=== PATIENT | male | born 2000 | race Caucasian/White ===

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

== ENCOUNTER 2022-01-14 10:24 | Inpatient (IN) | payer BC ==
--- NOTE | 2022-01-14 10:58 | XR ---
EXAMINATION TYPE: XR chest 2V DATE OF EXAM: 01/14/2022 COMPARISON: 02/25/2020 INDICATION: Progressively worsening cough TECHNIQUE: Frontal and lateral views of the chest are obtained. FINDINGS: The heart size is normal. The pulmonary vasculature is normal. There is a right suprahilar superior mediastinal mass. Additional workup is recommended.. Trachea ap pears midline. No significant compression is evident. IMPRESSION: 1. Right suprahilar or superior right mediastinal mass. CT chest with contrast is recommended for add itional evaluation.
--- NOTE | 2022-01-14 11:58 | CT ---
EXAMINATION TYPE: CT chest wo con DATE OF EXAM: 01/14/2022 INDICATION: Difficulty breathing. CT DLP: 296.9 mGy.cm Automated Exposure Control for Dose Reduction was Utilized. TECHNIQUE AND CONTRAST: CT scan of the chest without IV contrast administration. COMPARISON: X-ray performed earlier same day FINDINGS: Right superior mediastinal mass measuring 7.2 x 6 x 7.8 cm. It is suboptimally assessed due to the la ck of IV contrast administration. It is inseparable from the SVC and aortic arch anteriorly, compress ing the trachea posteriorly and medially and inseparable from the mediastinal pleura and adjacent rig ht upper lobe laterally. The right main bronchus is slightly displaced posteriorly by the mass. No gross cardiomegaly. Right u pper lobe medial atelectasis, likely due to the mass effect of the lesion. Grossly unremarkable remai nder of the lungs. Patent trachea and main bronchi. No pleural or pericardial effusion. No pathologically enlarged lymph nodes in the chest by this nonen hanced CT scan. 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 Grossly unremarkable upper abdo men. No aggressive bone lesion. IMPRESSION: Right superior mediastinal mass as described above. It is suboptimally assessed by this nonenhanced C T scan in spite of the previous x-ray recommendation for a contrast-enhanced CT chest. It could represent a lymphoma however other neoplastic lesion of vascular, pulmonary or soft tissue o rigin can't be excluded. Recommend further PET scan assessment, thoracic surgery consultation and tis alisha diagnosis.
--- NOTE | 2022-01-14 12:09 | ED ---
URI HPI - General Chief Complaint: Upper Respiratory Infection Stated Complaint: ASHLIE Time Seen by Provider: 01/14/22 11:05 Source: patient, family (mom), RN notes reviewed, old records reviewed Mode of arrival: ambulatory Limitations: no limitations - History of Present Illness Initial Comments: This is a well-appearing 21-year-old male that presents to the emergency room with complaints of 2 days of cough, congestion, runny nose and headaches. He states that he has chest tightness that is worse when he tries to take a deep breath. Patient states he used to vape but quit 2 years ago. Patient denies any medical history and no medications on a daily basis. MD Complaint: cough, rhinorrhea, nasal congestion, other (headache) Severity scale (1-10): 7 Consistency: constant Improves With: nothing Associated Symptoms: headache, rhinorrhea, nasal congestion, cough, chest pain, nausea - Related Data Home Medications Medication Instructions Recorded Confirmed No Known Home Medications 04/15/20 04/15/20 Allergies Allergy/AdvReac Type Severity Reaction Status Date / Time nut - unspecified Allergy Anaphylaxis Verified 01/14/22 10:40 tree nut [Nut] Allergy Anaphylaxis Verified 01/14/22 10:40 Review of Systems ROS Statement: Those systems with pertinent positive or pertinent negative responses have been documented in the HPI. ROS Other: All systems not noted in ROS Statement are negative. Past Medical History Past Medical History: No Reported History Additional Past Medical History / Comment(s): ABDOMINAL PAIN History of Any Multi-Drug Resistant Organisms: None Reported Past Surgical History: No Surgical Hx Reported Past Anesthesia/Blood Transfusion Reactions: No Reported Reaction Additional Past Anesthesia/Blood Transfusion Reaction / Comment(s): FIRST ANESTHETIC Past Psychological History: No Psychological Hx Reported Smoking Status: Never smoker - Past Family History Mother Family Medical History: No Reported History General Exam Limitations: no limitations General appearance: alert, in no apparent distress Head exam: Present: atraumatic Eye exam: Present: normal appearance. Absent: scleral icterus, conjunctival injection ENT exam: Present: normal exam, normal oropharynx, mucous membranes moist Neck exam: Present: normal inspection, full ROM. Absent: tenderness, meningismus, lymphadenopathy Respiratory exam: Present: wheezes Cardiovascular Exam: Present: regular rate, normal rhythm GI/Abdominal exam: Present: soft. Absent: distended, tenderness, rigid Extremities exam: Present: full ROM, normal capillary refill. Absent: tenderness, pedal edema, joint swelling, calf tenderness Back exam: Present: normal inspection, full ROM. Absent: tenderness, CVA tenderness (R), CVA tenderness (L), rash noted Neurological exam: Present: alert, oriented X3 Psychiatric exam: Present: normal affect, normal mood Skin exam: Present: warm, dry, intact, normal color, other (Bruising to bilateral lower extremities yellow-green in color). Absent: cyanosis, diaphoretic, pallor Course Vital Signs 01/14/22 01/14/22 10:35 13:11 Temperature 98.3 F Pulse Rate 99 84 Respiratory 18 20 Rate Blood Pressure 117/92 113/80 O2 Sat by Pulse 91 L 90 L Oximetry Medical Decision Making - Medical Decision Making Patient presents with cold symptoms for 2 days with dyspnea, nausea and nasal congestion. X-ray on room air. He was given a breathing treatment. shows a suprahilar mass, recommending CT. CT shows a right superior mediastinal mass measuring 7 x 6 x 7 cm. This is consistent with lymphoma however neoplastic lesion of vascular pulmonary or soft tissue origin cannot be excluded. Main right bronchus is displaced posteriorly by the mass. The trachea is compressed posteriorly and medially. On exam patient does have inspiratory and expiratory wheezes, oxygen saturation of 90% on room air, no respiratory distress noted. He was given a breathing treatment. Case discussed with Dr. Kc patient will be admitted to the hospital with pulmonary and hematology oncology consults. Case was discussed with Dr. Arvizu regarding patient's age and is willing to see the patient. Patient and mom were notified of the results and they're agreeable to admission. - Lab Data Lab Results 01/14/22 Range/Units 10:45 Coronavirus (PCR) Not Detected (Not Detectd) Disposition Clinical Impression: Pulmonary mass Disposition: ADMITTED IP TO THIS HOSP Referrals: Thai Mckeon DO [Primary Care Provider] - 1-2 days Decision Date: 01/14/22 Decision Time: 12:07
[2022-01-14] MEDS ORDERED: ACETAMINOPHEN TAB 325 MG TAB PO PRN (12:50)
[2022-01-14] MEDS ORDERED: IPRATROPIUM-ALBUTEROL 3 ML NEB INHALATION STA (12:50)
[2022-01-14] MEDS ORDERED: ONDANSETRON 4 MG/2 ML VIAL IVP PRN (12:50)
[2022-01-14] MEDS ORDERED: NALOXONE 0.4 MG/ML 1 ML VIAL IV PRN (12:50)
[2022-01-14] MEDS ORDERED: DEXAMETHASONE SOD PHOSPHATE 10 MG/ML 1 ML VIAL IVP STA (13:23)
[2022-01-14 13:34] LABS: Basophils % (A) 0 %; Eosinophils # (A) 0.6 k/uL (0-0.7); Eosinophils % (A) 5 %; HCT 40.1 % (39.0-53.0); HGB 12.6 gm/dL (13.0-17.5); Hypochromasia Slight; Lymphocytes # (A) 1.3 k/uL (1.0-4.8); Lymphocytes % (A) 11 %; MCH 26.5 pg (25.0-35.0); MCHC 31.4 g/dL (31.0-37.0); MCV 84.6 fL (80.0-100.0); Mean Platelet Volume 7.2; Monocytes # (A) 0.5 k/uL (0-1.0); Monocytes % (A) 4 %; Neutrophils # (A) 8.9 k/uL (1.3-7.7); Neutrophils % (A) 77 %; Platelet Count 443 k/uL (150-450); RBC 4.74 m/uL (4.30-5.90); WBC 11.6 k/uL (4.0-11.0)
[2022-01-14 13:51] LABS: African American GFR (CKD) >90 (>60 ml/min/1.73 sqM); Anion Gap 11 mmol/L; Blood Urea Nitrogen 12 mg/dL (9-20); Calcium 9.4 mg/dL (8.4-10.2); Carbon Dioxide 28 mmol/L (22-30); Chloride 102 mmol/L (98-107); Glucose 96 mg/dL (74-99); Non-African American GFR(CKD) >90 (>60 ml/min/1.73 sqM); Potassium 4.9 mmol/L (3.5-5.1); Sodium 141 mmol/L (137-145)
[2022-01-14] MEDS ORDERED: IOPAMIDOL CONTRAST (ORAL USE) VIAL PO PRN (14:09)
--- NOTE | 2022-01-14 14:13 | P.CNPUL ---
History of Present Illness History of present illness: A 21-year-old boy, coming in to the emergency because of some cough and chest congestion along with a runny nose and headache since been going on for the past 48 hours. The patient was feeling miserable at night and the patient was unable to sleep. He asked his mother to be brought in to the burst department. The patient had a chest x-ray that showed a right upper mediastinal mass and following this the patient had a noncontrast CAT scan of the chest that showed a right superior mediastinal mass measuring 7.2 x 7.8 x 6 cm in size and this was causing some mass effect and compression of the trachea along the right lateral wall. The upper abdominal structures were grossly normal. Lung windows were essentially within normal limits. Based on this, pulmonary consultation was req unancy. The patient is currently afebrile. The patient is hemodynamically stable. Pulse ox is 93% room air oxygen. The patient denied having any fever or chills. He was sweating in the evenings and he has a positive history of night sweats. No itching or pruritus. No neck swelling. No had swelling. No arm swelling. No puffiness of his face. The white cell count is at 11.6 and the liver 4.6 and a platelet count of 443 and the patient has 11% lymphocytes and the patient has normal electrolytes.: COVID 19 testing was negative. No previous chest x-rays are available for comparison. No difficulties in swallowing. He has Vaped in the past. He is a nonsmoker. No flushing, no hemoptysis, no hoarseness, no lymphadenopathy throughout the body, no wheezing or stridor, no vision changes, eye droop or any facial weakness Review of Systems Constitutional: Reports night sweats, Reports weight loss Eyes: denies as per HPI, denies blurred vision, denies bulging eye, denies decreased vision, denies diplopia, denies discharge, denies dry eye, denies irritation, denies itching, denies pain, denies photophobia, denies loss of peripheral vision, denies loss of vision, denies tunnel vision/blind spots Ears: deny: decreased hearing, ear discharge, earache, tinnitus Ears, nose, mouth and throat: Reports as per HPI, Reports nasal congestion Breasts: absent: as per HPI, gynecomastia Cardiovascular: Reports as per HPI Respiratory: Reports cough Gastrointestinal: Reports as per HPI Genitourinary: Reports as per HPI Musculoskeletal: Reports as per HPI Musculoskeletal: absent: ankle pain, ankle stiffness, ankle swelling Integumentary: Reports as per HPI Neurological: Reports as per HPI Psychiatric: Reports as per HPI Endocrine: Reports as per HPI Hematologic/Lymphatic: Reports as per HPI Allergic/Immunologic: Reports as per HPI Past Medical History Past Medical History: No Reported History Additional Past Medical History / Comment(s): ABDOMINAL PAIN History of Any Multi-Drug Resistant Organisms: None Reported Past Surgical History: No Surgical Hx Reported Past Anesthesia/Blood Transfusion Reactions: No Reported Reaction Additional Past Anesthesia/Blood Transfusion Reaction / Comment(s): FIRST ANESTHETIC Past Psychological History: No Psychological Hx Reported Smoking Status: Never smoker - Past Family History Mother Family Medical History: No Reported History Medications and Allergies Home Medications Medication Instructions Recorded Confirmed Type No Known Home Medications 04/15/20 01/14/22 History Allergies Allergy/AdvReac Type Severity Reaction Status Date / Time nut - unspecified Allergy Anaphylaxis Verified 01/14/22 13:24 peanut Allergy Anaphylaxis Verified 01/14/22 13:24 tree nut [Nut] Allergy Anaphylaxis Verified 01/14/22 13:24 Physical Exam Vitals: Vital Signs Temp Pulse Resp BP Pulse Ox 01/14/22 13:35 70 22 113/80 96 01/14/22 13:31 70 01/14/22 13:11 84 20 113/80 90 L 01/14/22 10:35 98.3 F 99 18 117/92 91 L Intake and Output 01/13/22 01/14/22 01/14/22 22:59 06:59 14:59 Other: Weight 78.925 kg The patient appeared well nourished and normally developed. Vital signs as documented. The patient's breathing is nonlabored and the patient is resting comfortably in bed. He is currently on room air oxygen. Head exam is unremarkable. No scleral icterus or corneal arcus noted. Neck is without jugular venous distension, thyromegaly, or carotid bruits. Carotid upstrokes are brisk bilaterally. Lungs are clear to auscultation and percussion. Cardiac exam reveals the PMI to be normally sized and situated. Rhythm is regu lar. First and second heart sounds normal. No murmurs, rubs or gallops. Abdominal exam reveals normal bowel sounds, no masses, no organomegaly and no aortic enlargement. Extremities are nonedematous and both femoral and pedal pulses are normal. Examination of the skin revealed no evidence of significant rashes, suspicious appearing nevi or other concerning lesions.Neurologically, the patient is awake and alert and the patient does not have any focal neurological deficit. Cranial nerves are essentially intact. Results - Laboratory Findings CBC and BMP: 01/14/22 12:54 01/14/22 12:54 Abnormal lab findings: Abnormal Labs 01/14/22 12:54 WBC 11.6 H Hgb 12.6 L Neutrophils # 8.9 H - Diagnostic Findings Chest x-ray: image reviewed CT scan - chest: image reviewed Assessment and Plan Plan: Mediastinal mass involving the right superior/middle mediastinum measuring 7.2 x 7.8 x 6 cm in size and causing some limited mass effect on the right lateral wall of the trachea. Note that the CAT scan was a noncontrast image and this is a suboptimal study. This could be potentially a lymphoma being the Hodgkin's versus non-Hodgkin's. Other pulmonary structures such as bronchogenic cyst is within the differential diagnosis. Vascular structures cannot be completely excluded as the patient had a noncontrast CAT scan. Other possibilities include esophageal abnormalities, tumors such as germ cell or thymus or thyroid related tumors. Acute hypoxic respiratory failure currently on a pulse ox of 90-94% on room air Constitutional symptoms including night sweats and some weight loss Plan Discussed the findings with the family, the mother and the patient's. Will need a contrast enhanced CAT scan of the chest. Based on underlying hypoxemia, I will do a CT of the chest to rule out pulmonary embolism and better evaluate the superior mediastinal structure. Rule out the possibility of pulmonary embolism. Rule out possibility of vascular structures versus solid/soft tissue tumors. Will need a CAT scan of the abdomen and pelvis with by mouth contrast Check thyroid function test Check sedimentation rate I should be able to biopsy this needs to structures through an EBUS. This was explained to the family and the family was agreeable. We reviewed the images. We'll discuss this with hematology oncology. We'll tentatively schedule this patient for bronchoscopy with an EBUS in a.m.
[2022-01-14 14:42] LABS: C Reactive Protein 7.2 mg/dL (<1.0); LDH 1290 U/L (313-618)
--- NOTE | 2022-01-14 20:39 | P.CONS ---
History of Present Illness - Reason for Consult Consult date: 01/14/22 large rt hilar mass Requesting physician: Nash Baig - Chief Complaint shortness of breath, cough - History of Present Illness Mr Tee is a very pleasant 21-year-old male who is presenting to the emergency department with sudden onset shortness of breath. Over the last 2-3 days he wasn't feeling well- cough, congestion-but this progressed to include chest ti ghtness, worse with inspiration, and SOB. It is visible that he is having mild difficulty in breathing at rest. Patient denies any recent voice changes, difficulty swallowing, painful swallowing. He is noting a little bit of swelling in the neck but denies any other swelling, lymphadenopathy, fevers, unintentional weight loss. He is positive for recent onset low back pain, no notable injury. His mother confirms no history of undescended testicle. Family history includes a grandfather with pancreatic cancer. CT of the chest showing a 7.2 x 6 x 7.8 cm right hilar mass is displacing the right bronchus. Patient has been seen by Pulmonary. There are plans for biopsy tomorrow. Review of Systems 14 point review of systems is negative except as stated in HPI Past Medical History Past Medical History: No Reported History Additional Past Medical History / Comment(s): ABDOMINAL PAIN History of Any Multi-Drug Resistant Organisms: None Reported Past Surgical History: No Surgical Hx Reported Past Anesthesia/Blood Transfusion Reactions: No Reported Reaction Additional Past Anesthesia/Blood Transfusion Reaction / Comm: FIRST ANESTHETIC Past Psychological History: No Psychological Hx Reported Smoking Status: Never smoker - Past Family History Mother Family Medical History: No Reported History Medications and Allergies Home Medications Medication Instructions Recorded Confirmed Type No Known Home Medications 04/15/20 01/14/22 History Allergies Allergy/AdvReac Type Severity Reaction Status Date / Time nut - unspecified Allergy Anaphylaxis Verified 01/14/22 13:24 peanut Allergy Anaphylaxis Verified 01/14/22 13:24 tree nut [Nut] Allergy Anaphylaxis Verified 01/14/22 13:24 Physical Exam Vitals: Vital Signs Temp Pulse Resp BP Pulse Ox 01/14/22 17:43 67 18 114/79 93 L 01/14/22 13:35 70 22 113/80 96 01/14/22 13:31 70 01/14/22 13:11 84 20 113/80 90 L 01/14/22 10:35 98.3 F 99 18 117/92 91 L Intake and Output 01/14/22 01/14/22 01/14/22 06:59 14:59 22:59 Other: Weight 78.925 kg - Constitutional General appearance: average body habitus, cooperative, no acute distress - EENT Eyes: anicteric sclerae, EOMI ENT: hearing grossly normal, normal oropharynx - Neck Neck: no lymphadenopathy - Respiratory Respiratory: right: diminished, negative: wheezing - Cardiovascular Rhythm: regular Heart sounds: normal: S1, S2 Abnormal Heart Sounds: no systolic murmur, no diastolic murmur, no rub, no S3 Gallop, no S4 Gallop, no click, no other leg Peripheral Edema: bilateral: None - Gastrointestinal General gastrointestinal: no absent bowel sounds, no decreased bowel sounds, no distended, no hepatomegaly, no hyperactive bowel sounds, normal bowel sounds, no organomegaly, no rigid, no scaphoid, soft, no splenomegaly, no tenderness, no umbilical hernia, no ventral hernia - Genitourinary Dr. Cole performed testicular exam, no unusual findings - Integumentary Integumentary: normal - Neurologic Neurologic: CNII-XII intact - Musculoskeletal Musculoskeletal: strength equal bilaterally - Psychiatric Psychiatric: A&O x's 3, appropriate affect, intact judgment & insight Results CBC & Chem 7: 01/14/22 12:54 01/14/22 12:54 Labs: Abnormal Lab Results - Last 24 Hours (Table) 01/14/22 01/14/22 01/14/22 Range/Units 12:54 12:54 14:20 WBC 11.6 H (4.0-11.0) k/uL Hgb 12.6 L (13.0-17.5) gm/dL Neutrophils # 8.9 H (1.3-7.7) k/uL ESR 87 H (0-15) mm/hr Lactate Dehydrogenase 1290 H (313-618) U/L C-Reactive Protein 7.2 H (<1.0) mg/dL Chest x-ray: report reviewed CT scan - chest: report reviewed Assessment and Plan (1) Pulmonary mass Current Visit: Yes Status: Acute Priority: High Code(s): R91.8 - OTHER NONSPECIFIC ABNORMAL FINDING OF LUNG FIELD SNOMED Code(s): 101137231 Plan: Dr. Cole discussed with the patient and his mother obvious concerning findings in a 21-year-old with a large mass in the chest. Typically benign tumors, i.e. thymomas, I found incidentally and asymptomatic. The symptoms and the size of this mass are concerning. Differentials include germ cell tumor, lymphoid tumor, thyroid or thymus tumors, hopefully less likely a primary. Pending biopsy CT of the abdomen and pelvis and CTA pending. CT of the neck added AFP, beta hCG and HIV testing ordered. Very close follow-up. attests: I have performed H&P, seen and examined patient, developed im pression and plan of care. Discussed with dictator. Agree with documentation dictated as a scribe
--- NOTE | 2022-01-15 07:18 | CT ---
EXAMINATION TYPE: CT chest angio for PE DATE OF EXAM: 01/14/2022 COMPARISON: None HISTORY: weightloss, chest mass CT DLP: 237.6 mGycm Automated exposure control for dose reduction was used. CONTRAST: Performed with IV Contrast, patient injected with 100 mL of Isovue 370. Images obtained from the thoracic inlet through the diaphragm with IV contrast. There are Three-D pos tprocessed images. There is some coarse linear density in the anterior right upper lobe. There is large mass in the medi astinum that measures 6.5 cm in diameter in the right paratracheal region. The thoracic aorta is inta ct. No aneurysm or dissection. No evidence of filling defect in the pulmonary arteries. Heart size is normal. There is no pericardial effusion. The thoracic spine is intact. Sternum is inta ct. No pleural effusion. Upper abdominal soft tissues appear intact. IMPRESSION: Large right-sided soft tissue density mediastinal mass with anterior displacement of the superior jenny a cava. There is benign and malignant differential diagnosis. There is some atelectasis in the medial anterior right upper lobe probably due to extrinsic compression of the bronchi. No evidence of pulmonary embolism.
--- NOTE | 2022-01-15 07:27 | CT ---
EXAMINATION TYPE: CT abdomen pelvis w con DATE OF EXAM: 01/14/2022 COMPARISON: 02/06/2020 HISTORY: weightloss CT DLP: 427.4 mGycm Automated exposure control for dose reduction was used. CONTRAST: Performed with IV Contrast, patient injected with 100 mL of Isovue 370. Images obtained from the diaphragm to the floor the pelvis with oral and IV contrast. Lung bases are clear. No pleural effusion. Heart size is normal. There is no pericardial effusion. Liver spleen and stomach pancreas gallbladder appear normal. The bi le ducts are not dilated. There is no adrenal mass. Kidneys have normal size. No hydronephrosis. Delayed images show normal camryn al excretion. There is no retroperitoneal adenopathy. Bladder distends smoothly. No inguinal hernia. No free fluid in the pelvis. No evidence of a pelvic mass. Appendix appears to be partly visualized w ith contrast and not dilated. There is no mesenteric edema. There is no ascites or free air. No bowel obstruction. The lumbar vertebrae have normal spacing and alignment. No compression fracture. The posterior elemen ts are intact. The bony pelvis is intact. Hip joints appear normal. IMPRESSION: Negative CT scan abdomen and pelvis.
[2022-01-15 09:12] LABS: INR 1.2 (<1.2); Partial Thromboplastin Time 26.5 sec (22.0-30.0); Prothrombin Time 12.5 sec (9.0-12.0)
[2022-01-15 10:34] LABS: Basophils # (A) 0.03 X 10*3/uL (0.00-0.10); Basophils % (A) 0.2 %; Eosinophils # (A) 0.05 X 10*3/uL (0.04-0.35); Eosinophils % (A) 0.3 %; HCT 37.5 % (39.6-50.0); HGB 11.5 g/dL (13.0-17.0); Immature Grans, Automated 0.5 %; Lymphocytes # (A) 1.49 X 10*3/uL (0.90-5.00); Lymphocytes % (A) 8.8 %; MCH 25.3 pg (27.0-32.0); MCHC 30.7 g/dL (32.0-37.0); MCV 82.6 fL (80.0-97.0); Mean Platelet Volume 9.9 fL (9.5-12.2); Monocytes # (A) 0.86 X 10*3/uL (0.20-1.00); Monocytes % (A) 5.1 %; NRBC Per 100 WBC 0 /100 WBCS (0.0-0.0); Neutrophils % (A) 85.1 %; Platelet Count 476 X 10*3/uL (140-440); RBC 4.54 X 10*6/uL (4.40-5.60); RDW 14.7 % (11.5-14.5); WBC 17.01 X 10*3/uL (4.50-10.00)
[2022-01-15 10:54] LABS: ALT 23 U/L (10-49); AST 20 U/L (14-35); Albumin 4.1 g/dL (3.8-4.9); Alkaline Phosphatase 116 U/L (41-126); Blood Urea Nitrogen 13.5 mg/dL (9.0-27.0); Calcium 9.6 mg/dL (8.7-10.3); Carbon Dioxide 24.3 mmol/L (20.0-27.5); Chloride 99 mmol/L (96-109); Globulin 4.1 g/dL (1.6-3.3); Glucose 125 mg/dL (70-110); Magnesium 2.3 mg/dL (1.5-2.4); Non-African American GFR(CKD) 123.4 (60.0-200.0); Phosphorus 5.1 mg/dL (2.4-5.1); Potassium 4.6 mmol/L (3.5-5.5); Sodium 138 mmol/L (135-145); Total Bilirubin <0.15 mg/dL (0.30-1.20); Total Protein 8.2 g/dL (6.2-8.2)
[2022-01-15 13:01] LABS: HIV 2 AB Non-Reactive (Non-Reactive); HIV AB P24 Non-Reactive (Non-Reactive); HIV P24 AG Non-Reactive (Non-Reactive)
[2022-01-15] MEDS ORDERED: LACTATED RINGERS 1,000 ML IV ONE (13:39)
[2022-01-15 14:22] VITALS: BMI 16.4
[2022-01-15] MEDS ORDERED: GLYCOPYRROLATE 0.2 MG/ML 2 ML VIAL ONE (14:25)
[2022-01-15] MEDS ORDERED: NEOSTIGMINE 1 MG/ML 10 ML VIAL ONE (14:25)
[2022-01-15] MEDS ORDERED: LIDOCAINE 2% INJ 20 MG/ML (2 ML VIAL) ONE (14:25)
[2022-01-15] MEDS ORDERED: PROPOFOL 10 MG/ML 20 ML VIAL IV ONE (14:25)
[2022-01-15] MEDS ORDERED: SUCCINYLCHOLINE CHLORIDE 100 MG/5 ML SYR IV ONE (14:25)
[2022-01-15] MEDS ORDERED: MIDAZOLAM 2 MG/2 ML VIAL ONE (14:25)
[2022-01-15] MEDS ORDERED: fentaNYL (PF) 50 MCG/ML 2 ML AMP ONE (14:25)
[2022-01-15] MEDS ORDERED: ROCURONIUM 10 MG/ML (5 ML VIAL) IV ONE (14:25)
--- NOTE | 2022-01-15 14:33 | P.PN ---
Subjective Progress Note Date: 01/15/22 01/15/2022, I I'm seeing the patient for a follow-up. CAT scan of the chest was done with a contrast and there is no filling defects, no vascular component, there is no dissection or aneurysm formation. The patient has a large mediastinal mass is and the patient is set up for a bronchoscopy and he was d irected needle aspirate of the mediastinal mass. High likelihood for underlying lymphoma. The ESR is elevated.. LDH is also elevated. Clinically, the patient is having some cough. No stridor. No facial swelling. No chest swelling. No other new complaints otherwise for now. CAT scan of the abdomen showed no acute abnormalities. The TSH is normal. Alpha-fetoprotein is normal. Objective - Vital Signs Vital signs: Vital Signs Temp 98.4 F 01/15/22 13:40 Pulse 85 01/15/22 13:40 Resp 18 01/15/22 13:40 BP 118/65 01/15/22 13:40 Pulse Ox 92 L 01/15/22 13:40 FiO2 Intake & Output 01/14/22 01/15/22 01/15/22 18:59 06:59 18:59 Intake Total 100 Balance 100 Weight 78.925 kg 56.5 kg 56.5 kg Intake: IV 100 Other: Voiding Method Toilet Toilet # Voids 1 - Exam The patient appeared well nourished and normally developed. Vital signs as documented. The patient's breathing is nonlabored and the patient is resting comfortably in bed. He is currently on room air oxygen. Head exam is unremarkable. No scleral icterus or corneal arcus noted. Neck is without jugular venous distension, thyromegaly, or carotid bruits. Carotid upstrokes are brisk bilaterally. Lungs are clear to auscultation and percussion. Cardiac exam reveals the PMI to be normally sized and situated. Rhythm is regular. First and second heart sounds normal. No murmurs, rubs or gallops. Abdominal exam reveals normal bowel sounds, no masses, no organomegaly and no aortic enlargement. Extremities are nonedematous and both femoral and pedal pulses are normal. Examination of the skin revealed no evidence of significant rashes, suspicious appearing nevi or other concerning lesions.Neurologically, the patient is awake and alert and the patient does not have any focal neurological deficit. Cranial nerves are essentially intact. - Labs CBC & Chem 7: 01/15/22 08:08 01/15/22 08:08 Labs: Abnormal Lab Results - Last 24 Hours (Table) 01/14/22 01/14/22 01/15/22 Range/Units 12:54 14:20 08:08 WBC 17.01 H (4.50-10.00) X 10*3/uL Hgb 11.5 L (13.0-17.0) g/dL Hct 37.5 L (39.6-50.0) % MCH 25.3 L (27.0-32.0) pg MCHC 30.7 L (32.0-37.0) g/dL RDW 14.7 H (11.5-14.5) % Plt Count 476 H (140-440) X 10*3/uL Immature Gran # 0.08 H (0.00-0.04) X 10*3/uL Neutrophils # 14.50 H (1.80-7.70) X 10*3/uL ESR 87 H (0-15) mm/hr PT (9.0-12.0) sec INR (<1.2) Glucose (70-110) mg/dL Total Bilirubin (0.30-1.20) mg/dL Lactate Dehydrogenase 1290 H (313-618) U/L C-Reactive Protein 7.2 H (<1.0) mg/dL Globulin (1.6-3.3) g/dL Albumin/Globulin Ratio (1.60-3.17) g/dL 01/15/22 01/15/22 Range/Units 08:08 08:08 WBC (4.50-10.00) X 10*3/uL Hgb (13.0-17.0) g/dL Hct (39.6-50.0) % MCH (27.0-32.0) pg MCHC (32.0-37.0) g/dL RDW (11.5-14.5) % Plt Count (140-440) X 10*3/uL Immature Gran # (0.00-0.04) X 10*3/uL Neutrophils # (1.80-7.70) X 10*3/uL ESR (0-15) mm/hr PT 12.5 H (9.0-12.0) sec INR 1.2 H (<1.2) Glucose 125 H (70-110) mg/dL Total Bilirubin <0.15 L (0.30-1.20) mg/dL Lactate Dehydrogenase (313-618) U/L C-Reactive Protein (<1.0) mg/dL Globulin 4.1 H (1.6-3.3) g/dL Albumin/Globulin Ratio 1.00 L (1.60-3.17) g/dL Assessment and Plan Plan: Mediastinal mass involving the right superior/middle mediastinum measuring 7.2 x 7.8 x 6 cm in size and causing some limited mass effect on the right lateral wall of the trachea. Note that the CAT scan was a noncontrast image and this is a suboptimal study. This could be potentially a lymphoma being the Hodgkin's versus non-Hodgkin's. Other possibilities including germ cell tumors cannot be completely ruled out. Acute hypoxic respiratory failure currently on a pulse ox of 90-94% on room air Constitutional symptoms including night sweats and some weight loss Plan Discussed the findings with the family, the mother and the patient's. Review of the CTA of the chest. Review the CAT scan of the abdomen and pelvis. We'll proceed with EBUS guided transbronchial needle aspirate of the mediastinal mass.
--- NOTE | 2022-01-15 15:23 | P.PCN ---
Date of Procedure: 01/15/22 Operative Findings: Preoperative Diagnosis: 1 right superior/middle mediastinal mass Postoperative Diagnosis: 1 right superior/middle mediastinal mass 2 mediastinal lymphadenopathy 3 mass effect over the right lateral wall of the trachea in its distal one third, mass effect on the right upper lobe bronchus and the various segments of the right upper lobe bronchus with extrinsic compression and narrowing. Procedure(s) Performed: 1 flexible bronchoscopy, airway inspection, bronchioloalveolar lavage of the right lower lobe 2 endoscopic ultrasound (EBUS) 3 transbronchial needle aspirate of right paratracheal/mediastinal mass. Surgeon: Paco Arvizu Package Worker #1: hoda Owusu Estimated Blood Loss (ml): 0 Pathology: other Condition: stable Disposition: same day Operative Findings: After obtaining the consent the patient was taken to the OR suite he was intubated and put on MV by anesthesia then the scope was advanced to the ET tube until the Trachea was seen and it was normal in its first and middle one third portions. This distal one third him a the trachea was extrinsically compressed along the right lateral wall and the wall itself was somewhat indented due to the mass effect created by the mediastinal mass along the right paratracheal area. Subsequent evaluation of the rest of the airways including the jason appears normal then the scope advanced to the left main and DAISY LB1-LB3 were seen and no endobronchial lesions were seen then the scope advanced to the lingula and the LB4 and LB5 were seen and no endobronchial lesions were seen the scope retracted and advanced to the left lower lobes LB6 to LB12 were seen one by one and no endobronchial lesions, then the scope was retracted back to the jason and advanced to the Right main and RUL RB1 and RB2 and RB3 were seen and the various segments of the right upper lobe were narrowed and this extrinsically compressed and there was residual respiratory secretions and milky white secretions identified occupying the right upper lobe bronchus. Following that the scope then retracted and advanced to the BI and RML RB4 and RB5 were seen and no endobronchial lesions were seen then it was retracted and advanced to the RLL RB6 to RB12 were seen one by one and no endobronchial lesions. Secretions of the same characteristics were also seen in the right lower lobe. The bronchoscope was moved to the right lower lobe and the bronchioloalveolar lavage was done. A total of 40 cc of fluid was infused and approximately 10 mL was aspirated and the aspirate was creamy white in color. Then EBUS was used and the lymph nodes were examined. Direct measurement of the mediastinal lymph nodes revealed a 9 x 7.5 cm station right paratracheal mass. I performed transbronchial needle aspirate of the paratracheal mass and a total of 5 passes FNA was done without major bleeding and the samples were sent for cell block. Following that the additional 2 passes was done and it was placed in RPM solution. No bleeding was encountered. Bronchoscope was removed. Therapeutic it was suctioning was done. Following that, the patient was extubated and transferred recovery in stable condition.
[2022-01-15] MEDS ORDERED: ONDANSETRON 4 MG/2 ML VIAL IVP ONE (15:49)
--- NOTE | 2022-01-15 16:20 | CT ---
EXAMINATION TYPE: CT soft tissue neck w con DATE OF EXAM: 01/15/2022 COMPARISON: CT chest 01/14/2022 HISTORY: 21-year-old male with lung mass, history of chest mass, further evaluation before bronch tod ay TECHNIQUE: Contiguous axial scanning of the soft tissues of the neck performed with IV Contrast, loan ent injected with 70 mL of Isovue 300. Coronal/sagittal reconstructions performed. CT DLP: 768 mGycm Automated exposure control for dose reduction was used. FINDINGS: Visualized intracranial structures, orbits and globes, and mastoid air cells appear clear. There is rightward nasal septal deviation and moderate mucosal thickening throughout the paranasal si nuses. Nasopharynx and oropharynx are clear. Epiglottis and prevertebral soft tissues are satisfactory. The glottic and subglottic structures as well as the tracheal column are clear. No large right paratracheal mediastinal mass measuring up to 6.5 cm displacing the brachiocephalic ve in confluence and upper SVC anteriorly. Thyroid gland is satisfactory. Submandibular glands appear somewhat atrophic. Bilateral parotid gland s are also atrophic. Bones: Some straightening of the normal cervical lordosis. IMPRESSION: 1. RIGHTWARD NASAL SEPTAL DEVIATION MODERATE CHRONIC BREAUX SINUS DISEASE. 2. NO SUSPICIOUS CERVICAL LYMPHADENOPATHY OR NECK MASS IDENTIFIED. 3. WE NOTE ATROPHIC PAROTID AND SUBMANDIBULAR GLANDS. CORRELATE FOR ANY DRY MOUTH SYMPTOMS. 4. KNOWN RIGHT PARATRACHEAL MEDIASTINAL MASS MEASURING UP TO 6.5 CM.
--- NOTE | 2022-01-15 16:42 | P.HPIM ---
History of Present Illness H&P Date: 01/15/22 Chief Complaint: Dyspnea This is a pleasant, well-appearing 21-year-old gentleman with no prior reported medical history, presented to the ER with complaints of headaches, cough, congestion , runny nose nausea 2 days accompanied by chest tightness worsened by deep inspiration, night sweats and some weight loss. Denies visual deficits- no double vision, no loss of vision. Denies pain Reports history of vaping, quit 2 years ago. Chest x-ray reported right suprahilar mass or superior right mediastinal mass. CT reported right superior mediastinal mass measuring 7.2 x 6 x 7.8 cm, suboptimal study without contrast,possible lymphoma. Chest CTA reported large sided soft tissue intensity mediastinal mass measuring 6.5 cm in the right paratracheal region with anterior displacement of the superior vena cava, benign and malignant differential diagnosis with some atelectasis in the medial anterior right upper lobe probably due to extrinsic compression of the bronchi, no evidence of PE,no aneurysm or dissection, no evidence of filling defect in the pulmonary arteries. CT of abdomen and pelvis reported negative. Afebrile, WBC 11.6, hemoglobin 12.6, platelets 443, chemistry panel unremarkable, LDH and CRP elevated, 1290, 7.2. ESR elevated, 87. TSH normal. A.m. labs, serology, tumor marker pending. Denies chest pain, palpitations. Denies lightheadedness or dizziness. Dyspneic upon conversing without stridor. Evaluated by pulmonary and oncology with recommendations noted and appreciated. Scheduled for bronchoscopy with biopsy, neck CT. Review of Systems ROS Statement: Those systems with pertinent positive or pertinent negative responses have been documented in the HPI. ROS Other: All systems not noted in ROS Statement are negative. Past Medical History Past Medical History: No Reported History Additional Past Medical History / Comment(s): . History of Any Multi-Drug Resistant Organisms: None Reported Past Surgical History: No Surgical Hx Reported Past Anesthesia/Blood Transfusion Reactions: No Reported Reaction Additional Past Anesthesia/Blood Transfusion Reaction / Comment(s): . Past Psychological History: No Psychological Hx Reported Smoking Status: Never smoker Past Alcohol Use History: None Reported Past Drug Use History: None Reported - Past Family History Mother Family Medical History: No Reported History Medications and Allergies Home Medications Medication Instructions Recorded Confirmed Type Acetaminophen Tab [Tylenol] 650 mg PO Q6HR PRN tab 01/15/22 Rx Azithromycin [Zithromax] 500 mg PO DAILY 5 Days #5 tab 01/15/22 Rx methylPREDNISolone Dose Pack 4 mg PO DIRECTED #21 tab 01/15/22 Rx [Medrol Dose Pack] Allergies Allergy/AdvReac Type Severity Reaction Status Date / Time nut - unspecified Allergy Anaphylaxis Verified 01/15/22 13:38 peanut Allergy Anaphylaxis Verified 01/15/22 13:38 tree nut [Nut] Allergy Anaphylaxis Verified 01/15/22 13:38 Physical Exam Vitals: Vital Signs Temp Pulse Pulse Resp BP BP Pulse Ox 01/15/22 04:53 97.9 F 80 18 125/57 91 L 01/14/22 22:43 98.1 F 96 20 115/65 90 L 01/14/22 20:38 85 20 127/64 92 L 01/14/22 17:43 67 18 114/79 93 L 01/14/22 13:48 98.1 F 78 16 131/67 98 01/14/22 13:35 70 22 113/80 96 01/14/22 13:31 70 01/14/22 13:11 84 20 113/80 90 L Intake and Output 01/14/22 01/15/22 01/15/22 22:59 06:59 14:59 Other: Voiding Method Toilet # Voids 1 Weight 56.5 kg PHYSICAL EXAM: VITAL SIGNS: As above GENERAL: Well-nourished, Sitting up in bed, no acute distress. Respiratory effort normal. No hoarseness. HEENT: Conjunctivae normal. eyes normal. NECK: Supple, No JVD. No thyroid enlargement. CARDIOVASCULAR: S1, S2 regular. No murmur RESPIRATION: Nonlabored, Breath sounds diminished in the bases. No rhonchi or crackles. No bronchial breathing. ABDOMEN: Soft, nontender . No guarding. no masses palpable. No ascites, No hepatosplenomegaly.Bowel sounds heard. LEGS: No edema. no swelling PSYCHIATRY: Alert and oriented X3, mood and affect normal. NERVOUS SYSTEM: Cranial N 2-12 grossly normal. Moves all 4 limbs. No focal deficits. Strength and sensation grossly intact. Skin: Warm and dry, no rash Results CBC & Chem 7: 01/15/22 08:08 01/15/22 08:08 Labs: Abnormal Lab Results - Last 24 Hours (Table) 01/14/22 01/14/22 01/14/22 Range/Units 12:54 12:54 14:20 WBC 11.6 H (4.0-11.0) k/uL Hgb 12.6 L (13.0-17.5) gm/dL Hct (39.6-50.0) % MCH (27.0-32.0) pg MCHC (32.0-37.0) g/dL RDW (11.5-14.5) % Plt Count (140-440) X 10*3/uL Immature Gran # (0.00-0.04) X 10*3/uL Neutrophils # 8.9 H (1.3-7.7) k/uL ESR 87 H (0-15) mm/hr PT (9.0-12.0) sec INR (<1.2) Glucose (70-110) mg/dL Total Bilirubin (0.30-1.20) mg/dL Lactate Dehydrogenase 1290 H (313-618) U/L C-Reactive Protein 7.2 H (<1.0) mg/dL Globulin (1.6-3.3) g/dL Albumin/Globulin Ratio (1.60-3.17) g/dL 01/15/22 01/15/22 01/15/22 Range/Units 08:08 08:08 08:08 WBC 17.01 H (4.0-11.0) k/uL Hgb 11.5 L (13.0-17.5) gm/dL Hct 37.5 L (39.6-50.0) % MCH 25.3 L (27.0-32.0) pg MCHC 30.7 L (32.0-37.0) g/dL RDW 14.7 H (11.5-14.5) % Plt Count 476 H (140-440) X 10*3/uL Immature Gran # 0.08 H (0.00-0.04) X 10*3/uL Neutrophils # 14.50 H (1.3-7.7) k/uL ESR (0-15) mm/hr PT 12.5 H (9.0-12.0) sec INR 1.2 H (<1.2) Glucose 125 H (70-110) mg/dL Total Bilirubin <0.15 L (0.30-1.20) mg/dL Lactate Dehydrogenase (313-618) U/L C-Reactive Protein (<1.0) mg/dL Globulin 4.1 H (1.6-3.3) g/dL Albumin/Globulin Ratio 1.00 L (1.60-3.17) g/dL Thrombosis Risk Factor Assmnt - Choose All That Apply Any of the Below Risk Factors Present?: No Other Risk Factors: No Other congenital or acquired thrombophilia - If yes, enter type in comment: No Thrombosis Risk Factor Assessment Level: Very Low Risk Assessment and Plan Assessment: mediastinal mass measuring 6.5 cm in the right paratracheal region with anterior displacement of the superior vena cava, bronchoscopy with biopsy pending Acute hypoxic respiratory failure secondary to the above Prior history of Vaping, quit 2 years ago. Plan: Continue on current medication regime, monitoring and symptomatic treatment. A.m. labs pending.Continue on current medication regime ,monitoring and symptomatic treatment. Scheduled for bronchoscopy with biopsy, neck CT.Potential discharge later this afternoon pending clearance from pulmonary, The impression and plan of care has been dictated as directed. : I performed a history and examination of this patient, discussed the same with the dictator. I agree with the dictator's note ,documented as a scribe. Any additional findings or plans will be noted.
[2022-01-15 16:43] VITALS: BP 101/67; PULSE 70; RESP 16; TEMP 98.7
--- NOTE | 2022-01-15 20:55 | P.PN ---
Subjective Progress Note Date: 01/15/22 Principal diagnosis: Mediastinal Mass Patient was at Biopsy but parents present and long discussion with parents and pulm regarding patient all questions answered Objective - Vital Signs Vital signs: Vital Signs Temp 97.9 F 01/15/22 04:53 Pulse 80 01/15/22 08:30 Resp 18 01/15/22 08:30 BP 125/57 01/15/22 04:53 Pulse Ox 91 L 01/15/22 04:53 FiO2 Intake & Output 01/14/22 01/15/22 01/15/22 18:59 06:59 18:59 Weight 78.925 kg 56.5 kg Other: Voiding Method Toilet Toilet # Voids 1 - Labs CBC & Chem 7: 01/15/22 08:08 01/15/22 08:08 Labs: Abnormal Lab Results - Last 24 Hours (Table) 01/14/22 01/14/22 01/14/22 Range/Units 12:54 12:54 14:20 WBC 11.6 H (4.0-11.0) k/uL Hgb 12.6 L (13.0-17.5) gm/dL Hct (39.6-50.0) % MCH (27.0-32.0) pg MCHC (32.0-37.0) g/dL RDW (11.5-14.5) % Plt Count (140-440) X 10*3/uL Immature Gran # (0.00-0.04) X 10*3/uL Neutrophils # 8.9 H (1.3-7.7) k/uL ESR 87 H (0-15) mm/hr PT (9.0-12.0) sec INR (<1.2) Glucose (70-110) mg/dL Total Bilirubin (0.30-1.20) mg/dL Lactate Dehydrogenase 1290 H (313-618) U/L C-Reactive Protein 7.2 H (<1.0) mg/dL Globulin (1.6-3.3) g/dL Albumin/Globulin Ratio (1.60-3.17) g/dL 01/15/22 01/15/22 01/15/22 Range/Units 08:08 08:08 08:08 WBC 17.01 H (4.0-11.0) k/uL Hgb 11.5 L (13.0-17.5) gm/dL Hct 37.5 L (39.6-50.0) % MCH 25.3 L (27.0-32.0) pg MCHC 30.7 L (32.0-37.0) g/dL RDW 14.7 H (11.5-14.5) % Plt Count 476 H (140-440) X 10*3/uL Immature Gran # 0.08 H (0.00-0.04) X 10*3/uL Neutrophils # 14.50 H (1.3-7.7) k/uL ESR (0-15) mm/hr PT 12.5 H (9.0-12.0) sec INR 1.2 H (<1.2) Glucose 125 H (70-110) mg/dL Total Bilirubin <0.15 L (0.30-1.20) mg/dL Lactate Dehydrogenase (313-618) U/L C-Reactive Protein (<1.0) mg/dL Globulin 4.1 H (1.6-3.3) g/dL Albumin/Globulin Ratio 1.00 L (1.60-3.17) g/dL Assessment and Plan Plan: Chest x-ray: report reviewed CT scan - chest: report reviewed Assessment and Plan (1) Pulmonary mass Current Visit: Yes Status: Acute Priority: High Code(s): R91.8 - OTHER NONSPECIFIC ABNORMAL FINDING OF LUNG FIELD SNOMED Code(s): 914961120 Plan: Dr. Cole discussed with the patient and his mother obvious concerning findings in a 21-year-old with a large mass in the chest. He has also discussed the plan for tissue biopsy today with Dr. Arvizu. Typically benign tumors, i.e. thymomas, I found incidentally and asymptomatic. The symptoms and the size of this mass are concerning. Differentials include germ cell tumor, lymphoid tumor, thyroid or thymus tumors, hopefully less likely a primary. Pending biopsy CT of the abdomen and pelvis and CTA pending. CT of the neck added AFP, beta hCG and HIV testing ordered. Very close follow-up. Greater than 30 minutes with patient's family answering questions and consulting [facility] other physician team members attests: I have performed H&P, seen and examined patient, developed impression and plan of care. Discussed with dictator. Agree with documentation dictated as a scribe
[2022-01-16 01:03] LABS: Uric Acid 4.1 mg/dL (3.7-8.7)
--- NOTE | 2022-01-21 11:51 | CONS ---
CONSULTATION REFERRED BY: Dr. Arvizu. PRIMARY CARE PHYSICIAN: Dr. Thai Mckeon. HISTORY OF PRESENT ILLNESS: Mr. Tee is a 21-year-old male who presents with cough and shortness of breath. CT scan of the chest demonstrated a large mediastinal mass extending into the right pleural space and compressing the trachea over to the left side of the chest. EBUS and biopsies were performed by Dr. Arvizu and were nondiagnostic. The patient is referred for mediastinoscopy. PREVIOUS MEDICAL HISTORY: Is negative. PREVIOUS SURGICAL HISTORY: Is negative. SOCIAL HISTORY: The patient does not use tobacco or drugs and drinks alcohol rarely. ALLERGIES: He has no known drug allergies. HE IS ALLERGIC TO NUTS. PHYSICAL EXAM: Demonstrates a healthy, well-developed, 21-year-old male in no distress. Pupils are equal and reactive to light. Extraocular motions are intact. There are no cervical masses. Lung russell are clear. Heart rate and rhythm are regular. Abdomen: Soft and nontender. Pulses are intact. No cyanosis or clubbing of the extremities. IMPRESSION: In summary, this is a 21-year-old with a large right peritracheal mass. EBUS showed lymphoid tissue, but was nondiagnostic. Biopsy has been requested. Suspicion is for Hodgkin's disease and the differential diagnosis could include non-Hodgkin's lymphoma or testicular cancer. The indications for the procedure, risks versus benefits and possible complications were outlined. The usual perioperative course was described. Surgery will be scheduled next week. MMODL / IJN: [id number] /
== END 2022-01-15 18:45 | disposition home or self-care (01) | DRG 204 ==
LOC: EC 10:24 → 5NMEDONC 12:52
PROVIDERS: ADMIT Family Medicine; ATTEND Family Medicine
PROC: 07D78ZX Extraction of Thorax Lymphatic, Via Natural or Artificial Opening Endoscopic, Diagnostic (ICD-10-PCS; principal; 2022-01-15 07:30)
PROC: 0B9F8ZX Drainage of Right Lower Lung Lobe, Via Natural or Artificial Opening Endoscopic, Diagnostic (ICD-10-PCS; principal; 2022-01-15 07:30)
DX: R91.8 Other nonspecific abnormal finding of lung field (principal); J96.01 Acute respiratory failure with hypoxia; R59.0 Localized enlarged lymph nodes; Z20.822 Contact with and (suspected) exposure to COVID-19; R63.4 Abnormal weight loss; R61 Generalized hyperhidrosis; Z91.018 Allergy to other foods; Z91.010 Allergy to peanuts; Z87.891 Personal history of nicotine dependence; Z80.0 Family history of malignant neoplasm of digestive organs
CPT/HCPCS: 31624; 31627; 36415; 70491; 71046; 71250; 71275; 74177; 80048; 80053; 82105; 82306; 83519; 83615; 83735; 84100; 84443; 84550; 84702; 85025; 85610; 85652; 85730; 86140; 87070; 87102; 87116; 87205; 87206; 87252; 87390; 87496; 87498; 87502; 87529; 87634; 87635; 87798; 88108; 88173; 88305; 88341; 88342; 96374; 99285

== ENCOUNTER 2022-01-28 08:57 | Day surgery (SDC) | payer BC ==
[~2022-01-28 08:57] MED LIST changes: +DEXAMETHASONE SOD PHOSPHATE 4 MG/ML 1 ML VIAL IV ONE; +HYDROmorphone 0.5 MG/0.5 ML SYRINGE IVP PRN; +ONDANSETRON 4 MG/2 ML VIAL IVP ONE
[2022-01-28] MEDS ORDERED: LACTATED RINGERS 1,000 ML IV ONE ×2 (09:40→14:15)
[2022-01-28] MEDS ORDERED: PROPOFOL 10 MG/ML 20 ML VIAL IV ONE (12:56)
[2022-01-28] MEDS ORDERED: KETAMINE 10 MG/ML 20 ML VIAL ONE (12:56)
[2022-01-28] MEDS ORDERED: LIDOCAINE 4% LTA KIT (4 ML) TOPICAL ONE (12:56)
[2022-01-28] MEDS ORDERED: fentaNYL (PF) 50 MCG/ML 2 ML AMP ONE (12:56)
[2022-01-28] MEDS ORDERED: NEOSTIGMINE 1 MG/ML 10 ML VIAL ONE (12:56)
[2022-01-28] MEDS ORDERED: LIDOCAINE 2% INJ 20 MG/ML (2 ML VIAL) ONE (12:56)
[2022-01-28] MEDS ORDERED: MIDAZOLAM 2 MG/2 ML VIAL ONE (12:56)
[2022-01-28] MEDS ORDERED: SUCCINYLCHOLINE CHLORIDE 100 MG/5 ML SYR IV ONE (12:56)
[2022-01-28] MEDS ORDERED: ROCURONIUM 10 MG/ML (5 ML VIAL) IV ONE (12:56)
[2022-01-28] MEDS ORDERED: GLYCOPYRROLATE 0.2 MG/ML 2 ML VIAL ONE (12:56)
[2022-01-28] MEDS ORDERED: THROMBIN (BOVINE) 5,000 UNIT VIAL TOPICAL ONE (13:44)
[2022-01-28] MEDS ORDERED: GELATIN SPONGE,ABSORB (LARGE) 1 EACH SPONGE TOPICAL ONE (13:44)
[2022-01-28 14:50] VITALS: TEMP 96.8
[2022-01-28 15:47] VITALS: RESP 16
[2022-01-28 15:49] VITALS: BP 124/82; PULSE 50
--- NOTE | 2022-02-04 13:53 | P.OP ---
Date of Procedure: 01/28/22 Preoperative Diagnosis: mediastinal mass Postoperative Diagnosis: same Procedure(s) Performed: mediastinoscopy with biopsy Anesthesia: ANGELIA Surgeon: Mike Wilson [employer] Professor #1: Faraz Jackson Estimated Blood Loss (ml): 5 IV fluids (ml): 200 Urine output (ml): 0 Pathology: other (mediastinal mass) Condition: stable Disposition: PACU Indications for Procedure: 21-year-old male presented with cough. Found to have large mediastinal mass. Biopsy was indicated for diagnosis. Operative Findings: ] Paratracheal mass was encountered. There was significant fibrosis. Biopsies were obtained. Frozen section showed lymphoid tissue. Description of Procedure: Patient was brought to the operating room, laid supine on the operating table, anesthetized and intubated. The neck was extended. The anterior neck was sterilely prepped and draped. Incision was made across the base of the neck transversely across the midline. It was carried down through skin and subcutaneous tissue to the strap muscles. Dissection was carried vertically between the strap muscles to the pretracheal plane. The pretracheal plane was developed into the mediastinum with blunt finger dissection. Mediastinoscope was placed and dissection in the right paratracheal region revealed a mass. Biopsies were obtained. A portion was sent for frozen section. The remainder was sent fresh for permanent. The area was packed and good hemostasis obtained. Strap muscles were closed in the midline. Subcutaneous and subcuticular layers were closed in 2 layers with Vicryl suture. Skin glue and a dry sterile dressing were applied. Patient was extubated and transferred to recovery in stable condition.
== END 2022-01-28 16:01 | disposition home or self-care (01) ==
LOC: OR 08:57
PROVIDERS: ATTEND Thoracic Surgery (Cardiothoracic Vascular Surgery)
DX: C85.12 Unspecified B-cell lymphoma, intrathoracic lymph nodes (principal)
CPT/HCPCS: 39401; 88305; 88184; 88185; 88331; 87070; 87205; 87075; 87116; 87102; 87206; J2250; J1100; J2710; J0690; J2405; J3010; J0330; J2704; J2001

== ENCOUNTER → 2022-02-05 | Outpatient (CLI) | payer BC ==
--- NOTE | 2022-02-09 10:48 | PE ---
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 Localization and attenuation correction CT scan was performed. Average gestational uptake is 3.2, average liver uptake SUV 1.[address] 01/15/2022, CT abdomen pelvis 01/14/2022, CT chest 01/14/2022 Chest and neck: The paratracheal mass is again noted on the right, SUV is 12.9, no cervical or suprac lavicular adenopathy. There is no axillary or hilar adenopathy. No additional lung mass, pleural or p ericardial effusion. Mild uptake along the anterior soft tissues of the lower neck may be physiologic , no definite discrete mass at this level. ABDOMEN: No suspicious uptake. No evident liver mass or retroperitoneal adenopathy, there is no ascit es. Osseous structures show no suspicious uptake. IMPRESSION: Patient's known mass shows associated hypermetabolic uptake. Additional findings above.
== END | disposition home or self-care (01) ==
LOC: RADPETMAIN 15:21
PROVIDERS: ATTEND Internal Medicine Hematology & Oncology
DX: C96.Z Other specified malignant neoplasms of lymphoid, hematopoietic and related tissue (principal)
CPT/HCPCS: 78815; A9552

== ENCOUNTER 2022-02-12 09:32 | Day surgery (SDC) | payer BC ==
[2022-02-10 11:46] VITALS: BMI 23.1
[~2022-02-12 09:32] MED LIST changes: +ACETAMINOPHEN TAB 500 MG TAB PO PRN; -DEXAMETHASONE SOD PHOSPHATE 4 MG/ML 1 ML VIAL IV ONE; +HEPARIN SODIUM,PORCINE/PF 5,000 UNIT/0.5 ML SYRINGE SQ PRN; -HYDROmorphone 0.5 MG/0.5 ML SYRINGE IVP PRN; +LIDOCAINE 1% (10MG/ML) FOR IV START INTRADERMA PRN; -ONDANSETRON 4 MG/2 ML VIAL IVP ONE; +Pre Op ABX Message 1 EACH MISC MISCELLANE ONE
[2022-02-12] MEDS: HEPARIN SODIUM,PORCINE 100 UNIT/ML 5 ML VIAL IV ONE ×2 (09:34→09:39)
[2022-02-12] MEDS ORDERED: LIDOCAINE (PF) 10 MG/ML 2 ML VIAL SQ ONE ×2 (09:34→10:08)
[2022-02-12] MEDS ORDERED: ONDANSETRON 4 MG/2 ML VIAL ONE (09:36)
[2022-02-12] MEDS ORDERED: KETOROLAC 15 MG/ML 1 ML VIAL ONE (09:37)
[2022-02-12] MEDS ORDERED: MIDAZOLAM 2 MG/2 ML VIAL ONE (09:37)
[2022-02-12] MEDS ORDERED: fentaNYL (PF) 50 MCG/ML 2 ML AMP ONE (09:37)
[2022-02-12] MEDS ORDERED: PROPOFOL 10 MG/ML 20 ML VIAL IV ONE (09:37)
[2022-02-12] MEDS ORDERED: LIDOCAINE 2% INJ 20 MG/ML (2 ML VIAL) ONE (09:37)
[2022-02-12] MEDS ORDERED: PHENYLEPHRINE-0.9% NACL SYG 1,000 MCG/10 ML SYRINGE ONE (09:37)
--- NOTE | 2022-02-12 09:37 | P.GSHP ---
History of Present Illness H&P Date: 02/12/22 Chief Complaint: Lymphoma 21-year-old male recently diagnosed with lymphoma. Here today for Port-A-Cath placement. He has not had a port previously. No fevers. Past Medical History Past Medical History: Cancer Additional Past Medical History / Comment(s): newly diagnosed Hodgkin's Lymphoma History of Any Multi-Drug Resistant Organisms: None Reported Past Surgical History: No Surgical Hx Reported Additional Past Surgical History / Comment(s): mediastinal mass bx Past Anesthesia/Blood Transfusion Reactions: No Reported Reaction Additional Past Anesthesia/Blood Transfusion Reaction / Comment(s): . Past Psychological History: No Psychological Hx Reported Smoking Status: Never smoker Past Alcohol Use History: Occasional Additional Past Alcohol Use History / Comment(s): former vaper Past Drug Use History: None Reported - Past Family History Mother Family Medical History: No Reported History Medications and Allergies Home Medications Medication Instructions Recorded Confirmed Type EPINEPHrine (Auto Inject) [Epipen] 0.3 mg IM ONCE PRN 02/10/22 02/10/22 History Allergies Allergy/AdvReac Type Severity Reaction Status Date / Time nut - unspecified Allergy Anaphylaxis Verified 02/12/22 09:21 peanut Allergy Anaphylaxis Verified 02/12/22 09:21 tree nut [Nut] Allergy Anaphylaxis Verified 02/12/22 09:21 Surgical - Exam Vital Signs Temp Pulse Resp BP Pulse Ox 97.1 F L 84 16 115/65 99 02/12/22 09:26 02/12/22 09:26 02/12/22 09:26 02/12/22 09:26 02/12/22 09:26 Physical exam: General: Well-developed, well-nourished HEENT: Normocephalic, sclerae nonicteric, recent cervical scar noted Abdomen: Nontender, nondistended Extremities: No edema Neuro: Alert and oriented Assessment and Plan (1) Lymphoma Narrative/Plan: 21-year-old male with lymphoma. We'll proceed with Port-A-Cath placement at this time. Risks of bleeding, infection, DVT, pneumothorax, catheter malfunction, anesthesia related complications were discussed. The patient understands and wishes to proceed. Status: Acute Code(s): C85.90 - NON-HODGKIN LYMPHOMA, UNSPECIFIED, UNSPECIFIED SITE SNOMED Code(s): 957565901
[2022-02-12] MEDS ORDERED: DEXAMETHASONE SOD PHOSPHATE 4 MG/ML 1 ML VIAL IV ONE (09:40)
[2022-02-12] MEDS ORDERED: NALOXONE 0.4 MG/ML 1 ML VIAL IV PRN (10:27)
[2022-02-12] MEDS ORDERED: HYDROcodone/APAP 5-325MG 1 EACH TAB PO PRN (10:27)
[2022-02-12] MEDS ORDERED: ACETAMINOPHEN TAB 325 MG TAB PO PRN (10:27)
--- NOTE | 2022-02-12 10:29 | P.OP ---
Date of Procedure: 02/12/22 Procedure(s) Performed: PREOPERATIVE DIAGNOSIS: Hodgkin's lymphoma POSTOPERATIVE DIAGNOSIS: Same PROCEDURE: Port-A-Cath placement with fluoroscopic and ultrasound guidance SURGEON: Ana EBL: Minimal ANESTHESIA: Sedation COMPLICATIONS: None OPERATIVE PROCEDURE: Patient was brought and placed on the operative table in the supine position. The patient was sedated per anesthesia that time. The chest and neck were prepped and draped in usual sterile fashion. The ultrasound probe was used to identify the location of the right internal jugular vein. The skin was localized with lidocaine. The Seldinger needle was advanced into the IJ under ultrasound guidance. The wire was advanced through the needle under fluoroscopic guidance into the superior vena cava. A port pocket was created in the right infraclavicular location. The catheter was tunneled from the wire entrance site to the port pocket. The port was then connected to the catheter. The dilator introducer was threaded over the guidewire. The guidewire and dilator were then removed. The catheter was advanced through the introducer and introducer was then removed. The tip was seen to be in the right atrial junction via fluoroscopy. A picture of the radiograph showing the tip at the radial digital junction was taken. Port was flushed with both saline and a Hep- Lock solution. There was good flow both in and out of the port. The port was sutured in underlying tissues using 3-0 silk sutures. The subcutaneous tissues were reapproximated using 3-0 Vicryl sutures and the skin at both locations using 4-0 Monocryl sutures. Skin glue and sterile dressings then applied. DISPOSITION: Stable to recovery room
--- NOTE | 2022-02-12 10:31 | FL ---
EXAMINATION TYPE: FL guided central line placemt DATE OF EXAM: 02/12/2022 CLINICAL HISTORY: Newly diagnosed lymphoma. TECHNIQUE: Fluoroscopy. COMPARISON: None. FINDINGS: Fluoroscopic guidance was provided during Mediport catheter insertion procedure performed by Dr. Perez. A total of 3 seconds of fluoroscopic time was utilized during the procedure and 3 spot images was acquired. Images show right internal jugular Mediport catheter with tip in SVC. IMPRESSION: As Above.
[2022-02-12 10:42] VITALS: TEMP 97
--- NOTE | 2022-02-12 11:19 | XR ---
EXAMINATION TYPE: XR chest 1V confirm line [facility] DATE OF EXAM: 02/12/2022 COMPARISON: Chest x-ray and CTA chest January 14, 2022 HISTORY: Lymphoma. Port-A-Cath insertion. TECHNIQUE: Single AP portable frontal upright view of the chest is obtained. FINDINGS: There is new right internal jugular Mediport catheter terminating in SVC. Persistent right suprahilar mass or neoplasm. No pneumothorax seen after catheter insertion. Lungs remain clear. The cardiac silhouette size remains within normal limits. The osseous structures are intact. IMPRESSION: As above.
[2022-02-12] MEDS ORDERED: HYDROcodone/APAP 5-325MG 1 EACH TAB PO ONE (11:29)
[2022-02-12 13:11] VITALS: BP 105/66; PULSE 71; RESP 17
== END 2022-02-12 13:42 | disposition home or self-care (01) ==
LOC: OR 09:32
PROVIDERS: ATTEND Surgery
DX: C81.92 Hodgkin lymphoma, unspecified, intrathoracic lymph nodes (principal); Z80.42 Family history of malignant neoplasm of prostate; Z86.19 Personal history of other infectious and parasitic diseases; Z87.891 Personal history of nicotine dependence; Z91.018 Allergy to other foods
CPT/HCPCS: 77001; 36561; 76937; C1788; J2250; J2001 ×2; J1642; J1100; J2405; J3010; J1885; J2370; J2704

== ENCOUNTER → 2022-02-26 | Outpatient (CLI) | payer BC ==
[~2022-02-26] MED LIST changes: -ACETAMINOPHEN TAB 500 MG TAB PO PRN; -HEPARIN SODIUM,PORCINE/PF 5,000 UNIT/0.5 ML SYRINGE SQ PRN; -LACTATED RINGERS 1,000 ML IV SCH; -LIDOCAINE 1% (10MG/ML) FOR IV START INTRADERMA PRN; -Pre Op ABX Message 1 EACH MISC MISCELLANE ONE; +TIXAGEVIMAB/CILGAVIMAB (EUA) 300 MG/3 ML COMBO.PKG IM NR
[2022-02-26 11:04] VITALS: BP 112/67; PULSE 83; RESP 15; TEMP 97.8
== END ==
LOC: PROCWHC3 10:54
PROVIDERS: ATTEND Internal Medicine Hematology & Oncology
DX: Z23 Encounter for immunization (principal); Z91.010 Allergy to peanuts; Z91.018 Allergy to other foods
CPT/HCPCS: 96372; Q0220

== ENCOUNTER → 2022-04-23 | Outpatient (CLI) | payer BC ==
--- NOTE | 2022-04-26 15:21 | PE ---
Nuclear medicine PET CT HISTORY: Lymphoma, CAD 1.19, subsequent Patient received 11.7 mCi F-18 FDG intravenously and delayed scanning was performed from the skull ba se to the mid thighs. A localization and attenuation correction CT scan was performed. Correlation a prior nuclear medicine PET/CT 02/05/2022 Average mediastinal uptake SUV 1.2, average liver uptake SUV 2.2 Motion is present on the exam Chest and neck: There is some muscular uptake identified, no suspicious uptake within the neck or [facility]. There is a port in the right pectoral region coursing via a jugular approach such that the distal tip is within the cavoatrial junction level. Retrocaval pretracheal adenopathy is present, no associ ated uptake. The large mass seen on prior exam adjacent to the mediastinum in the right upper chest h as markedly diminished in size and only measures approximately 3.2 cm in transverse dimension as comp ared to prior exam when it measured approximately 7 cm. There is no evident pleural or pericardial ef fusion. No additional lung mass. ABDOMEN: There is no retroperitoneal adenopathy. No definite liver mass or adrenal mass. No suspiciou s uptake. There is no ascites. No pelvic adenopathy or free fluid. Osseous structures showed mild uptake which is likely due to marrow activation. Spinal curvature note d incidentally in the lumbar spine. IMPRESSION: Marked improvement as described.
== END | disposition home or self-care (01) ==
LOC: RADPETMAIN 11:16
PROVIDERS: ATTEND Internal Medicine Hematology & Oncology
DX: C81.92 Hodgkin lymphoma, unspecified, intrathoracic lymph nodes (principal)
CPT/HCPCS: 78815; A9552

== ENCOUNTER → 2023-03-18 | Outpatient (CLI) | payer BC ==
--- NOTE | 2023-03-19 08:43 | PE ---
EXAMINATION TYPE: PET CT fusion skull to thigh DATE OF EXAM: 03/18/2023 CLINICAL INDICATION:Male, 23 years old with history of C81.92; TECHNIQUE: Following the intravenous administration of 10.77 mCi of F-18 FDG, whole body images are performed from the skull base to the midthigh. Images are reviewed on the computer in the coronal, axial, and sagittal planes. Reconstructed rotating images are created on independent workstation and reviewed on the computer. A non-contrast CT is performed in conjunction with the PET scan. Glucose level 82 mg/dL CT DLP: 484 mGycm, Automated exposure control for dose reduction was used. COMPARISON: CT None, PET/CT 12/10/2022, FINDINGS: Mediastinal SUV mean is 0.6. Hepatic parenchyma SUV mean is 1.3. SKULL BASE AND NECK: No suspicious radiotracer activity. CHEST, MEDIASTINUM, AND HILAR REGION: Right paratracheal mass now measuring Max SUV 8.7, previously 5.0 and 3.1 Measuring 3.2 x 3.0 cm, 3.0 x 2.6 cm. ABDOMEN AND PELVIS: No suspicious radiotracer activity. MUSCULOSKELETAL STRUCTURES: No suspicious radiotracer activity. OTHER CT: Right chest wall [id number] with distal tip terminates in the superior vena cava. IMPRESSION: 1. Interval increase in size and FDG activity of right paratracheal mass. 2. No additional sites of abnormal FDG activity.
== END | disposition home or self-care (01) ==
LOC: RADPETMAIN 12:14
PROVIDERS: ATTEND Internal Medicine Hematology & Oncology
DX: C81.92 Hodgkin lymphoma, unspecified, intrathoracic lymph nodes (principal)
CPT/HCPCS: 78815; A9552

== ENCOUNTER → 2023-06-02 | Outpatient (CLI) | payer BC ==
--- NOTE | 2023-06-02 12:15 | PE ---
EXAMINATION TYPE: PET CT fusion skull to thigh DATE OF EXAM: 06/02/2023 CLINICAL INDICATION:Male, 23 years old with history of C81.92 Hodgkin Lymphoma; TECHNIQUE: Following the intravenous administration of 11.64 mCi of F-18 FDG, whole body images are performed from the skull base to the midthigh. Images are reviewed on the computer in the coronal, axial, and sagittal planes. Reconstructed rotating images are created on independent workstation and reviewed on the computer. A non-contrast CT is performed in conjunction with the PET scan. Glucose level 86 mg/dL CT DLP: 570 mGycm, Automated exposure control for dose reduction was used. COMPARISON: CT None, PET/CT 03/18/2023, FINDINGS: FINDINGS: Mediastinal SUV mean is 1.6, Hepatic parenchyma SUV mean is 2.4 SKULL BASE AND NECK: No suspicious radiotracer activity. CHEST, MEDIASTINUM, AND HILAR REGION: * Right paratracheal mass now measuring Max SUV 2.0, measuring 2.7 x 1.9, previously 3.1 x 2.9 cm. ABDOMEN AND PELVIS: No suspicious radiotracer activity. MUSCULOSKELETAL STRUCTURES: No suspicious radiotracer activity. OTHER CT: Right chest wall [id number]-[id number] with distal tip terminates in the superior vena cava. IMPRESSION: 1. Positive response to therapy with interval decrease in size and decrease in FDG activity of right paratracheal mass compared to immediate prior. 2. No additional sites of abnormal FDG activity.
== END | disposition home or self-care (01) ==
LOC: RADPETMAIN 09:09
PROVIDERS: ATTEND Internal Medicine Hematology & Oncology
DX: C81.92 Hodgkin lymphoma, unspecified, intrathoracic lymph nodes (principal)
CPT/HCPCS: 78815; A9552

== ENCOUNTER → 2023-10-13 | Outpatient (CLI) | payer BC ==
--- NOTE | 2023-10-17 15:01 | PE ---
EXAMINATION TYPE: PET CT fusion skull to thigh DATE OF EXAM: 10/13/2023 COMPARISON: Most recent prior PET/CT June 02, 2023 and older studies HISTORY: Hodgkin lymphoma TECHNIQUE: Following the intravenous administration of 12.09 mCi of F-18 FDG, whole body images are performed from the skull base to the midthigh. Images are reviewed on the computer in the coronal, a xial, and sagittal planes. Reconstructed rotating images are created on independent workstation and reviewed on the computer. A localization and attenuation correction CT is performed in conjunction with the PET scan. Blood glucose level was 82 SCAN: Subsequent Scan FINDINGS: Mean SUV mediastinum: 0.97 Mean SUV liver: 2.31 SKULL BASE AND NECK: No new areas of suspicious abnormal hypermetabolic uptake. CHEST, MEDIASTINUM, AND HILAR REGION: Stable 2.6 x 2.1 cm right paratracheal mass without new abnorma l hypermetabolic uptake. No new areas of suspicious abnormal hypermetabolic uptake. ABDOMEN AND PELVIS: No new areas of suspicious hypermetabolic uptake. Normal excretion. OSSEOUS STRUCTURES: No new areas of suspicious hypermetabolic uptake. OTHER CT: Stable right internal jugular Mediport catheter. IMPRESSION: No new areas of abnormal hypermetabolic uptake to suggest active neoplastic recurrence. N o significant change from most recent PET/CT.
== END | disposition home or self-care (01) ==
LOC: RADPETMAIN 09:38
PROVIDERS: ATTEND Internal Medicine Hematology & Oncology
DX: C81.92 Hodgkin lymphoma, unspecified, intrathoracic lymph nodes (principal)
CPT/HCPCS: 78815; A9552

== ENCOUNTER → 2024-01-16 | Outpatient (CLI) | payer BC ==
--- NOTE | 2024-01-17 08:20 | PE ---
EXAMINATION TYPE: PET CT fusion skull to thigh DATE OF EXAM: 01/16/2024 CLINICAL INDICATION:Male, 23 years old with history of C81.92 HODGKIN LYMPHOMA, UNSPECIFIED, INTRATHO RACI; TECHNIQUE: Following the intravenous administration of 8.18 mCi of F-18 FDG, whole body images are performed from the skull base to the midthigh. Images are reviewed on the computer in the coronal, a xial, and sagittal planes. Reconstructed rotating images are created on independent workstation and reviewed on the computer. A non-contrast CT is performed in conjunction with the PET scan. Glucose level 88 mg/dL CT DLP: 583 mGycm, Automated exposure control for dose reduction was used. COMPARISON: CT None, PET/CT 10/13/2023, FINDINGS: Mediastinal SUV mean is 1.9. Hepatic parenchyma SUV mean is 2.2. SKULL BASE AND NECK: No suspicious radiotracer activity. CHEST, MEDIASTINUM, AND HILAR REGION: No suspicious radiotracer activity. ABDOMEN AND PELVIS: No suspicious radiotracer activity. MUSCULOSKELETAL STRUCTURES: No suspicious radiotracer activity. OTHER CT: Mediport has been removed. The appendix is normal. IMPRESSION: No suspicious radiotracer activity.
== END | disposition home or self-care (01) ==
LOC: RADPETMAIN 07:26
PROVIDERS: ATTEND Internal Medicine Hematology & Oncology
DX: C81.92 Hodgkin lymphoma, unspecified, intrathoracic lymph nodes (principal)
CPT/HCPCS: 78815; A9552

== ENCOUNTER → 2024-07-12 | Outpatient (CLI) | payer BC ==
--- NOTE | 2024-07-15 10:52 | PE ---
EXAMINATION TYPE: PET CT fusion skull to thigh DATE OF EXAM: 07/12/2024 CLINICAL INDICATION:Male, 24 years old with history of C81.92 HODGKINS LYMPHOMA; TECHNIQUE: Following the intravenous administration of 7.69 mCi of F-18 FDG, whole body images are performed from the skull base to the midthigh. Images are reviewed on the computer in the coronal, a xial, and sagittal planes. Reconstructed rotating images are created on independent workstation and reviewed on the computer. A non-contrast CT is performed in conjunction with the PET scan. Glucose level 92 mg/dL CT DLP: 555.12 mGycm, Automated exposure control for dose reduction was used. COMPARISON: , PET/CT CT 01/16/2024, MRI: None FINDINGS: Mediastinal SUV mean is 1.78. Hepatic parenchyma SUV mean is 2.11. SKULL BASE AND NECK: No suspicious radiotracer activity. CHEST, MEDIASTINUM, AND HILAR REGION: No suspicious radiotracer activity. There remains a right parat jose alfredo lymph node suspected calcification no abnormal metabolic activity identified this is similar in size to prior axis previously give a measuring up to 11 mm in short axis. ABDOMEN AND PELVIS: No suspicious radiotracer activity. MUSCULOSKELETAL STRUCTURES: No suspicious radiotracer activity. OTHER CT: The appendix is normal. IMPRESSION: No suspicious radiotracer activity. Stable right perihilar lymph node without abnormal uptake. [facility], , 07/15/2024 10:50 AM
== END | disposition home or self-care (01) ==
LOC: RADPETMAIN 07:19
PROVIDERS: ATTEND Internal Medicine Hematology & Oncology
DX: C81.92 Hodgkin lymphoma, unspecified, intrathoracic lymph nodes (principal)
CPT/HCPCS: 78815; A9552

== ENCOUNTER → 2025-01-18 | Outpatient (CLI) | payer BC ==
--- NOTE | 2025-01-20 15:02 | PE ---
EXAMINATION TYPE: PET CT fusion skull to thigh DATE OF EXAM: 01/18/2025 COMPARISON: No recent pertinent CT Prior PET/CT: 07/12/2024 CLINICAL INDICATION: Male, 24 years old with history of C81.72 HODGKINS LYMPHOMA, TECHNIQUE: Following the intravenous administration of 11.10 mCi of F-18 FDG, whole body images are performed PET CT fusion skull to thigh. Images are reviewed on the computer in the coronal, axial, a nd sagittal planes. Reconstructed rotating images are created on independent workstation and reviewe d on the computer. A localization and attenuation correction CT is performed in conjunction with e PET scan. DLP: 953.6 mGycm SCAN: Subsequent Scan Blood glucose: 95 mg/dL Average Mediastinum SUV: 2 Average Liver SUV: 2.54 FINDINGS: NECK: No abnormal uptake THORAX: No abnormal uptake ABDOMEN: No abnormal uptake PELVIS: No abnormal uptake OSSEOUS STRUCTURES: There is mild uptake within the left upper manubrium, image 90, SUV 6.68. LOCALIZATION CT: Unremarkable COMPARISON: Uptake within the manubrium is new. IMPRESSION: 1. New abnormal uptake within the left manubrium. 2. No additional suspicious abnormal areas of uptake. [facility], , 01/20/2025 2:59 PM
== END | disposition home or self-care (01) ==
LOC: RADPETMAIN 09:37
PROVIDERS: ATTEND Internal Medicine Hematology & Oncology
DX: C81.72 Other Hodgkin lymphoma, intrathoracic lymph nodes (principal); R93.7 Abnormal findings on diagnostic imaging of other parts of musculoskeletal system
CPT/HCPCS: 78815; A9552